=== PATIENT | female | born 1930 | race Caucasian/White ===

== ENCOUNTER → 2017-12-24 10:30 | Observation (INO) ==
[2017-12-22 13:58] LABS: Basophils % 0.6 % (0.1-2.0); Eosinophils # 0.2 K/mm3 (0.0-0.4); Eosinophils % 3.3 % (0.1-12.0); Hematocrit 37.7 % (37.0-47.0); Hemoglobin 12.5 g/dL (12.2-16.2); Lymphocytes # 0.6 K/mm3 (0.7-4.5); Lymphocytes % 12.4 K/mm3 (10-50); Mean Corpuscular HGB Conc 33.3 g/dL (31.8-35.4); Mean Corpuscular Hemoglobin 32.5 pg (27.0-31.2); Mean Corpuscular Volume 97.8 fl (81-99); Mean Platelet Volume 8.3 fl (7.4-10.4); Monocytes # 0.3 K/mm3 (0.1-1.0); Monocytes % 6.3 % (1.7-9.3); Neutrophils # 3.7 K/mm3 (1.8-7.8); Neutrophils % 77.4 % (37.0-80.0); Platelet Count 178 K/mm3 (142-424); Red Blood Count 3.86 M/mm3 (4.20-5.40); Red Cell Distribution Width 13.3 % (11.5-17.5); White Blood Count 4.8 K/mm3 (4.8-10.8)
--- NOTE | 2017-12-22 13:58 | History & Physical Report ---
*Admission Date: 12/22/17 *Chief complaint: shortness of breath, weakness *History of present illness: 87 year old female with a history of dementia and hypothyroidism presented to PCP office with cough, congestion and shortness of breath that started last week. Daughter reports patient has become weak and unsteady on her feet over the last 2 days. She is utilizing walker with standby assistance with is not normal for her. Daughter further reports patient has become significantly more short of breath, especially with ambulation. In the office, patient was noted to be dyspneic after ambulating from the lobby to the exam room. She was mildly tachypneic with respiratory rate 28. Patient's confusion was much worse than normal. She was admitted to observation for further evaluation. [facility] History I have reviewed the patient's past medical history: Yes Other Medical History: Reports: Thyroid Disease Comment: dementia Review of Systems - Review of Systems Review of systems:: pertinent systems reviewed and negative unless documented below - Constitutional Reports fever(s), Reports malaise, Reports weakness - ENT Reports nasal congestion, Reports nasal discharge, Reports sore throat - *Respiratory Reports cough, Reports shortness of breath Meds Home Medications Medication Instructions Recorded Confirmed Type Cetirizine HCl [24Hour Allergy] 10 mg PO DAILY 12/22/17 12/22/17 History Donepezil HCl [Aricept] 5 mg PO DAILY 12/22/17 12/22/17 History Levothyroxine Sodium 75 mcg PO DAILY 12/22/17 12/22/17 History [Levothyroxine 75mcg (0.075mg) Tab] Miscellaneous [Unknown Home 0 each NOTAPPLIC CONSULT PHARMACY 12/22/17 12/22/17 History Medication] Quetiapine Fumarate [Seroquel 25mg 25 mg PO HS 12/22/17 12/22/17 History tablet] Allergies Allergy/AdvReac Type Severity Reaction Status Date / Time BANANAS (FOOD) Allergy Unknown Uncoded 09/15/17 15:07 Exam Vital signs and Labs for Last 24 Hours: Temp Pulse Resp BP Pulse Ox 100.0 F H 81 18 134/55 91 L 12/22/17 13:40 12/22/17 13:40 12/22/17 13:40 12/22/17 13:40 12/22/17 13:40 I & O for Last 24 hours: Intake & Output 12/20/17 12/21/17 12/22/17 12/23/17 11:59 11:59 11:59 11:59 Weight 109 lb 8 oz Narrative: Alert and oriented to self only, minimally verbal. Mildly dyspneic. Rate and rhythm regular. Trace LE edema. Pulses 2 + bilaterally. Skin, pink, warm and dry. Mucous membranes moist, mild erythema on pharynx. No with clear rhinorrhea. Lung sounds with occasional crackles LLL. Tachypneic, resp 30. No cervical LAD. No JVD. Abdomen soft and nontender. No acute neuro deficits. Assessment and Plan (1) Weakness Current visit: Yes Status: Acute Category: Medical Code(s): R53.1 - Weakness (2) URI (upper respiratory infection) Current visit: Yes Status: Acute Category: Medical Code(s): J06.9 - Acute upper respiratory infection, unspecified (3) Dementia Current visit: Yes Status: Acute Category: Medical Code(s): F03.90 - Unspecified dementia without behavioral disturbance - Assessment and plan all Dx Assessment and Plan for all problems:: Weakness and shortness of breath is likely related to viral URI. Treat for CAP as CXR pending.
[2017-12-22 14:10] LABS: Albumin Level 3.5 gm/dL (3.4-5.0); Albumin/Globulin Ratio 0.8 (1.1-1.8); Anion Gap 10.7 mEq/L (5-15); Bilirubin,Total 0.3 mg/dL (0.2-1.0); Calcium 9.2 mg/dL (8.5-10.1); Globulin 4.5 gm/dl (1.3-3.2); Potassium 4.7 mmoL/L (3.5-5.1)
[2017-12-22 14:31] LABS: Coronavirus 229E Not Detected (NotDetected); Coronavirus NL63 Not Detected (NotDetected); Coronavirus OC43 Not Detected (NotDetected); Coronovirus HKU1,PCR Not Detected (NotDetected)
[2017-12-22 15:02] LABS: Microscopic, Urine URINE MICROSCOPIC (MICROSCOPIC)
[2017-12-22 15:05] LABS: Appearance,Urine CLEAR (Clear); Bilirubin,Urine Negative (Negative); Blood, Urine Negative (Negative); Color,Urine YELLOW (Yellow); Glucose,Urine (UA) Negative (Negative); Ketones,Urine Negative (Negative); Leukocyte Esterase,Urine Negative (Negative); Protein,Urine Negative (Negative); Specific Gravity, Urine >= 1.030 (1.005-1.030)
[2017-12-22 15:28] LABS: Bacteria,Urine 2+ /lpf; Hyaline Casts,Urine Occasional #/lpf (0); Mucus,Urine 1+ /lpf; Transitional Epi Cells,Urine OCC #/lpf (0-3); WBC,Urine Occasional #/hpf (0-3)
--- NOTE | 2017-12-23 07:17 | Progress Note ---
Internal Medicine - PN: Subj *Date: 12/23/17 *Time: 07:16 Interval history: Patient is pleasant, talkative, demented, eating breakfast vigorously. Exam Vital signs and Labs for Last 24 Hours: Temp Pulse Resp BP Pulse Ox 97.9 F 76 20 163/63 94 L 12/23/17 04:00 12/23/17 04:00 12/23/17 04:00 12/23/17 04:00 12/23/17 04:00 Laboratory Results - last 24 hr 12/22/17 13:45: WBC 4.8, RBC 3.86 L, Hgb 12.5, Hct 37.7, MCV 97.8, MCH 32.5 H, MCHC 33.3, RDW 13.3, Plt Count 178, MPV 8.3, Neut % (Auto) 77.4, Lymph % (Auto) 12.4, Perry % (Auto) 6.3, Eos % (Auto) 3.3, Baso % (Auto) 0.6, Neut # (Auto) 3.7 , Lymph # (Auto) 0.6 L, Perry # (Auto) 0.3, Eos # (Auto) 0.2, Baso # (Auto) 0.0 12/22/17 13:45: Sodium 134 L, Potassium 4.7, Chloride 100, Carbon Dioxide 28, Anion Gap 10.7, BUN 20 H, Creatinine 1.19 H, Estimated Creat Clear 25, Estimated GFR 43 L, Est GFR ( Amer) 52 L, Glucose 101, Calcium 9.2, Total Bilirubin 0.3, AST 20, ALT 20, Alkaline Phosphatase 107, Total Protein 8.0 , Albumin 3.5, Globulin 4.5 H, Albumin/Globulin Ratio 0.8 L 12/22/17 14:25: Chlamy pneumoniae PCR Not detected, Adenovirus (PCR) Not detected, B.parapertussis DNA PCR Not detected, Coronavirus OC43 (PCR) Not detected, Coronavirus HKU1 (PCR) Not detected, Coronavirus 229E (PCR) Not detected, Coronavirus NL63 (PCR) Not detected, Human Metapneumovir PCR Not detected, Influenza A (H1) PCR Not detected, Influ A (H1N1/09) PCR Not detected , Influenza A (H3) PCR Not detected, Influenza Type A (PCR) Not detected, Influenza Type B (PCR) Not detected, M. pneumoniae (PCR) Not detected, Parainfluenza 1 (PCR) Not detected, Parainfluenza 2 (PCR) Not detected, Parainfluenza 3 (PCR) Not detected, Parainfluenza 4 (PCR) Not detected, RSV (PCR ) Not detected, Entero/Rhino (PCR) Detected A 12/22/17 14:52: Urine Color Yellow, Urine Appearance Clear, Urine pH 6.0, Ur Specific Pana >= 1.030, Urine Protein Negative, Urine Glucose (UA) Negative, Urine Ketones Negative, Urine Blood Negative, Urine Nitrate Negative, Urine Bilirubin Negative, Urine Urobilinogen 1.0, Ur Leukocyte Esterase Negative, Urine RBC None, Urine WBC Occasional, Ur Squamous Epith Cells 3-5, Ur Transition Epith Cell Occ, Urine Bacteria 2+, Hyaline Casts Occasional, Urine Mucus 1+ I & O for Last 24 hours: Intake & Output 12/20/17 12/21/17 12/22/17 12/23/17 11:59 11:59 11:59 11:59 Intake Total 1685 / 1685 Output Total 1250 / 1250 Balance 435 / 435 Weight 109 lb 8 oz Microbiology Reports for the Last 24 Hours: Microbiology 12/22/17 14:52 Urine,Clean Catch Urine Culture - Preliminary Narrative: Patient with minimal rhonchi in both lower lung martinez but good air movement, no fevers. Much less dyspneic according to her daughter. Heart rate regular. Assessment and Plan (1) Weakness Current visit: Yes Status: Acute Category: Medical Code(s): R53.1 - Weakness (2) URI (upper respiratory infection) Current visit: Yes Status: Acute Category: Medical Code(s): J06.9 - Acute upper respiratory infection, unspecified (3) Dementia Current visit: Yes Status: Acute Category: Medical Code(s): F03.90 - Unspecified dementia without behavioral disturbance - Assessment and plan all Dx Assessment and Plan for all problems:: Patient improving. Await blood cultures. Probable discharge tomorrow.
--- NOTE | 2017-12-23 07:30 | Pharmacy Consult Notes ---
[facility] Pharmacy VTE Monitoring - Patient Demographics Admission date: 12/22/17 Report Date: 12/23/17 Time: 07:30 Allergies/Adverse Reactions: Patient Allergies BANANAS (FOOD) Allergy (Unknown, Uncoded 09/15/17 15:07) Height: 1.45 m Weight: 49.668 kg Patient Problems: Current Active Problems Weakness (Acute) URI (upper respiratory infection) (Acute) Dementia (Acute) - VTE Risk Labs: VTE Related Lab Results Hgb 12.5 g/dL (12.2-16.2) 12/22/17 13:45 Hct 37.7 % (37.0-47.0) 12/22/17 13:45 Plt Count 178 K/mm3 (142-424) 12/22/17 13:45 BUN 20 mg/dL (7-18) H 12/22/17 13:45 Creatinine 1.19 mg/dL (0.55-1.02) H 12/22/17 13:45 Estimated Creat Clear 25 mL/min (0-300) 12/22/17 13:45 Was VTE Risk Assessment Performed: Yes VTE Score: 3 VTE Risk Level: Low Risk Clinical Trial Participant: No - Prophylaxis VTE Prophylaxis Ordered?: Yes Types of VTE Prophylaxis: TEDS Knee High
[2017-12-24 07:54] VITALS: BP 146/82
--- NOTE | 2017-12-24 09:03 | Discharge Summary ---
General - General Admission date: 12/22/17 Discharge date: 12/24/17 HPI HPI: 87 year old female with a history of dementia and hypothyroidism presented to PCP office with cough, congestion and shortness of breath that started last week. Daughter reports patient has become weak and unsteady on her feet over the last 2 days. She is utilizing walker with standby assistance with is not normal for her. Daughter further reports patient has become significantly more short of breath, especially with ambulation. In the office, patient was noted to be dyspneic after ambulating from the lobby to the exam room. She was mildly tachypneic with respiratory rate 28. Patient's confusion was much worse than normal. She was admitted to observation for further evaluation. Hospital Course Hospital Course: Patient was admitted for weakness. Labs were obtained which were unremarkable with exception of PCR which showed rhinovirus. CXR was obtained with no acute pathology noted. She had some increased confusion at night which is to be expected with her dementia. Fevers have resolved. She has an excellent appetite. Urinalysis was obtained which showed contamination. She is doing well and ready for discharge home with her daughter. Discharge home with daughter on z-pack and prednisone for pneumonitis. FU in one week with Elvira Haywood APRN Objective Vital signs: Temp Pulse Resp BP Pulse Ox 98.2 F 74 20 146/82 94 L 12/24/17 07:53 12/24/17 07:53 12/24/17 07:53 12/24/17 07:53 12/24/17 07:53 Narrative: Alert and oriented x1, at baseline. Rate and rhythm regular. Scattered loose rhonchi. Abdomen soft and nontender Results Labs on day of discharge: Preliminary micro results at discharge 12/22/17 13:50 Blood Culture - Preliminary Blood NO GROWTH AFTER 24 HOURS 12/22/17 13:45 Blood Culture - Preliminary Blood NO GROWTH AFTER 24 HOURS DS: Diagnosis - Discharge Diagnosis (1) Weakness Status: Acute (2) URI (upper respiratory infection) Status: Acute (3) Dementia Status: Acute Discharge Plan - Patient Discharge Instructions ACTIVITY: Continue current activity DIET: continue same diet - Follow up Plan Follow up with: Sherley Haywood APRN [Nurse Practitioner] - 1 week Home Medications: Home Medications Medication Instructions Recorded Confirmed Type Cetirizine HCl [24Hour Allergy] 10 mg PO DAILY 12/22/17 12/22/17 History Donepezil HCl [Aricept] 5 mg PO HS 12/22/17 12/23/17 History Levothyroxine Sodium 75 mcg PO DAILY 12/22/17 12/22/17 History [Levothyroxine 75mcg (0.075mg) Tab] Quetiapine Fumarate [Seroquel 25mg 25 mg PO HS 12/22/17 12/23/17 History tablet] Vit C/Vit E AC/Lut/Copper/Zinc 1 each PO DAILY 12/23/17 12/23/17 History [Preservision Lutein Softgel] Prescriptions/Medication Reconciliation: New predniSONE [Prednisone 20mg Tab] 20 mg PO DAILY #5 tab Azithromycin [Zithromax 250mg tab] 250 mg PO DIRECTED #6 tab Continue Cetirizine HCl [24Hour Allergy] 10 mg PO DAILY Donepezil HCl [Aricept] 5 mg PO HS Quetiapine Fumarate [Seroquel 25mg tablet] 25 mg PO HS Levothyroxine Sodium [Levothyroxine 75mcg (0.075mg) Tab] 75 mcg PO DAILY Vit C/Vit E AC/Lut/Copper/Zinc [Preservision Lutein Softgel] 1 each PO DAILY
== END | disposition home or self-care (01) ==
LOC: 2ND
PROVIDERS: ADMIT Internal Medicine Adolescent Medicine; ATTEND Internal Medicine Adolescent Medicine